=== PATIENT | female | born 1945 | race Caucasian/White ===

== ENCOUNTER → 2016-05-06 | Outpatient (CLI) | payer MEDICARE, OTHER ==
--- NOTE | 2016-05-06 11:21 | REPMRS ---
Patient History The patient states she had a clinical breast exam in 05/2016. Patient is postmenopausal. Family history of breast cancer in maternal aunt at age 50 or over, colorectal cancer in maternal aunt, and breast cancer in maternal cousin under age 50. Taking progesterone for 14 years. Digital Woman Screen Mammo: May 06, 2016 - Exam #: [id number] Bilateral CC and MLO view(s) were taken. Technologist: Shantell Pan, Technologist Prior study comparison: January 07, 2015, digital woman screen mammo performed at [facility]. November 22, 2013, digital woman screen mammo performed at [facility]. October 24, 2012, digital woman screen mammo performed at [facility]. FINDINGS: There are scattered fibroglandular densities. There has been no change in the appearance of the mammogram from the prior studies. There is a mild amount of scattered fibroglandular density which is fairly symmetric. There is no interval development of dominant mass, architectural distortion, or clustered microcalcification suggestive of malignancy. ASSESSMENT: BI-RADS/ACR category 1 mammogram. Negative. Recommendation Routine screening mammogram in 1 year (for women over age 40). This mammogram was interpreted with the aid of an FDA-approved computer-aided dectection system. Electronically Signed By: Jose Armendariz MD 05/06/16 [id number]
--- NOTE | 2016-05-07 12:57 | DEXA ---
AP SPINE L1 - L4 0.899 -2.4 -0.8 LT FEMUR TOTAL 0.664 -2.7 -1.2 RT FEMUR TOTAL 0.696 -2.5 -1.0 TOTAL BODY TOTAL OTHER DUAL FEMUR FRAX* ASSESSMENT Risk factors: History of adult fracture, premature menopause. 10 year probability of fracture Major osteoporotic fracture 31.5 % Hip fracture 11.7 % COMMENTS: There is low bone density of the spine. There is osteoporosis of the hips. The density of the spine has increased 8.9% since the initial exam on 2003. The spine density has increased 3.7% since the most recent exam on 11/22/2013. The density of the left hip has decreased 4.0% since the initial exam on 2003. The density of the left hip has decreased 0.6% since the most recent exam on . The density of the right hip has increased 0.3% since the initial exam on 2003. The density of the right hip has decreased 2.9% since the most recent exam on . FOLLOW-UP: Recommendation for the next bone density exam: 2 years. [employer]
== END ==
LOC: M WHC 09:40
PROVIDERS: ATTEND Nurse Practitioner Family
DX: Z01.419 Encounter for gynecological examination (general) (routine) without abnormal findings (principal); Z12.31 Encounter for screening mammogram for malignant neoplasm of breast; M81.0 Age-related osteoporosis without current pathological fracture; Z78.0 Asymptomatic menopausal state; Z79.890 Hormone replacement therapy; Z12.12 Encounter for screening for malignant neoplasm of rectum
CPT/HCPCS: 77080; 82270; G0101; G0202

== ENCOUNTER → 2016-11-11 | Outpatient (REF) | payer MEDICARE, OTHER ==
[2016-11-11 13:31] LABS: MEAN CORPUSCULAR HEMOGLOBIN 32.7 pg (27.0-33.0); MEAN CORPUSCULAR VOLUME 93.4 fl (80.0-96.0); RED CELL DISTRIBUTION WIDTH 11.7 % (11.5-14.5); WHITE BLOOD COUNT 4.5 K/mm3 (4.0-10.0)
[2016-11-11 13:43] LABS: ALBUMIN 3.9 GM/DL (3.2-5.2); ALBUMIN/GLOBULIN RATIO 1.44 (1.00-1.93); BILIRUBIN,TOTAL 0.8 MG/DL (0.2-1.0); CREATININE FOR GFR 1.01 MG/DL (0.55-1.02); FREE T4 0.96 NG/DL (0.76-1.46); GLOMERULAR FILTRATION RATE 57.4 (>39); POTASSIUM SERUM 4.2 MEQ/L (3.5-5.1); TOTAL PROTEIN 6.6 GM/DL (6.4-8.2)
== END ==
LOC: M SFHCADAM 09:23
PROVIDERS: ATTEND Family Medicine
DX: D75.89 Other specified diseases of blood and blood-forming organs (principal); E78.4 Other hyperlipidemia

== ENCOUNTER → 2016-12-08 | Outpatient (REF) | payer MEDICARE, OTHER ==
[2016-12-08 19:49] LABS: ALBUMIN 3.8 GM/DL (3.2-5.2); ALBUMIN/GLOBULIN RATIO 1.36 (1.00-1.93); BILIRUBIN,TOTAL 0.5 MG/DL (0.2-1.0); CREATININE FOR GFR 1.07 MG/DL (0.55-1.02); GLOMERULAR FILTRATION RATE 53.7 (>39); POTASSIUM SERUM 4.2 MEQ/L (3.5-5.1); TOTAL PROTEIN 6.6 GM/DL (6.4-8.2)
[2016-12-08 20:15] LABS: BASO # 0.1 10^3/uL (0.0-0.2); BASO % 0.7 % (0.0-1.0); EOS # 0.3 10^3/uL (0.0-0.50); EOS % 3.5 % (0.0-3.0); IMMATURE GRANULOCYTE % 0.3 % (0-0); LYMPH # 2.3 10^3/uL (1.5-4.5); LYMPH % 32.2 % (24.0-44.0); MEAN CORPUSCULAR HEMOGLOBIN 31.4 pg (27.0-33.0); MEAN CORPUSCULAR HGB CONC 33.2 g/dl (32.0-36.5); MEAN CORPUSCULAR VOLUME 94.6 fl (80.0-96.0); MONO # 0.6 10^3/uL (0.0-0.8); MONO % 8.9 % (0.0-5.0); NEUTROPHILS # 3.9 10^3/uL (1.8-7.7); NEUTROPHILS % 54.4 % (36.0-66.0); PLATELET COUNT, AUTOMATED 288 10^3/uL (150-450); WHITE BLOOD COUNT 7.2 10^3/uL (4.0-10.0)
[2016-12-08 20:59] LABS: ADD MORPHOLOGY? NO
== END ==
LOC: M SFHCADAM 16:20
PROVIDERS: ATTEND Physician Assistant
DX: R10.11 Right upper quadrant pain (principal)

== ENCOUNTER → 2016-12-09 | Outpatient (CLI) | payer MEDICARE, OTHER ==
--- NOTE | 2016-12-09 08:41 | REP ---
Abdominal right upper quadrant ultrasound: There is a positive Zhang's sign to transducer pressure. The visualized portion of the pancreatic head is unremarkable. The pancreatic body and tail are obscured by bowel gas. There is no cholelithiasis, gallbladder wall thickening or pericholecystic fluid. There is no intrahepatic or extrahepatic biliary duct dilatation. The common duct measures 3.4 mm in diameter. The hepatic parenchyma is homogeneous. There is no right renal hydronephrosis, calculus, mass or cyst. The right kidney is normal size measuring 90.5 cm craniocaudad length. There is no free fluid in the abdominal right upper quadrant. Impression: Positive Zhang's sign to transducer pressure. Otherwise, negative abdominal right upper quadrant ultrasound. Signed by Jose Luis Macedo MD 12/09/2016 08:32 A
== END ==
LOC: M RAD 06:18
PROVIDERS: ATTEND Physician Assistant
DX: R10.11 Right upper quadrant pain (principal)

== ENCOUNTER → 2017-01-18 | Outpatient (CLI) | payer MEDICARE, OTHER ==
--- NOTE | 2017-01-18 11:11 | REP ---
HIDA SCAN WITH GALLBLADDER EJECTION FRACTION: Following the intravenous administration of 6.6 mCi technetium 99m mebrofenin, multiple images of the right upper quadrant are performed for 1 hour. Gallbladder is visualized at 15 minutes postinjection. There is minimal [id number] transit at 1 hour. At that point, 8 ounces of Ensure Enlive was ingested and further imaging performed for 1 hour. Gallbladder ejection fraction is calculated to be 61%, which is normal. IMPRESSION: Normal gallbladder ejection fraction. Signed by Jose Luis Collazo MD 01/18/2017 12:44 P
== END ==
LOC: M RAD 07:45
PROVIDERS: ATTEND Surgery
DX: R10.11 Right upper quadrant pain (principal)
CPT/HCPCS: 78227; A9537; J2805

== ENCOUNTER → 2017-02-09 | Outpatient (CLI) | payer MEDICARE, OTHER | LOC: M LAB 14:29 | PROVIDERS: ATTEND Surgery | DX: R10.13 Epigastric pain (principal) ==

== ENCOUNTER → 2017-02-12 | Outpatient (CLI) | payer MEDICARE, OTHER ==
[~2017-02-12] MED LIST: ISOVUE-370 76% 100ML VIAL (Q9967) As Ordered ONE
--- NOTE | 2017-02-12 14:11 | REP ---
CT of the chest with IV contrast: Comparison is 03/19/2005. There are no infiltrates or effusions. There are no masses or nodules. There is no pleural thickening. No rib abnormalities are identified, particularly on the right. Vertebral body heights and alignment are normal. There is mild scoliosis convex right, possibly positional. There is no mediastinal or hilar adenopathy. There is no axillary adenopathy. The thoracic aorta is unremarkable. Cardiac size is normal. There is no pericardial effusion. The visualized upper abdominal contents are unremarkable. Impression: Essentially negative CT study of the chest. There is no change from the prior study. Signed by Jose Luis Macedo MD 02/12/2017 02:02 P
== END ==
LOC: M RAD 12:26
PROVIDERS: ATTEND Surgery
DX: R10.13 Epigastric pain (principal)
CPT/HCPCS: 71260; Q9967

== ENCOUNTER 2017-07-08 10:24 | Day surgery (SDC) | payer MEDICARE, OTHER ==
[2017-07-08] MEDS: NS 1,000 ML IV (10:42)
[2017-07-08] MEDS ORDERED: PROPOFOL 200 MG/20 ML VIAL As Ordered (11:27)
== END 2017-07-08 12:06 | disposition home or self-care (01) ==
LOC: M OPP 10:24
DX: Z12.11 Encounter for screening for malignant neoplasm of colon (principal); Z86.010 Personal history of colon polyps; I35.9 Nonrheumatic aortic valve disorder, unspecified; E78.5 Hyperlipidemia, unspecified; I36.1 Nonrheumatic tricuspid (valve) insufficiency; I34.2 Nonrheumatic mitral (valve) stenosis; K21.9 Gastro-esophageal reflux disease without esophagitis; R10.11 Right upper quadrant pain; M19.90 Unspecified osteoarthritis, unspecified site; M81.0 Age-related osteoporosis without current pathological fracture; Z87.891 Personal history of nicotine dependence; Z91.040 Latex allergy status; Z88.0 Allergy status to penicillin; Z88.2 Allergy status to sulfonamides; Z79.899 Other long term (current) drug therapy; Z80.7 Family history of other malignant neoplasms of lymphoid, hematopoietic and related tissues
CPT/HCPCS: G0105

== ENCOUNTER → 2017-10-04 | Outpatient (CLI) | payer MEDICARE, OTHER | LOC: M WHC 10:08 | DX: Z12.31 Encounter for screening mammogram for malignant neoplasm of breast (principal); Z79.890 Hormone replacement therapy; Z78.0 Asymptomatic menopausal state | CPT/HCPCS: 77067 ==

== ENCOUNTER → 2018-11-23 | Outpatient (REF) | payer MEDICARE, OTHER ==
[~2018-11-23] MED LIST changes: +CHOLACOL PO; +COQ1100C PO; +FISH100049 PO; -ISOVUE-370 76% 100ML VIAL (Q9967) As Ordered ONE; +OMEP40CA2; +REDCAP3 PO; +[UNRECOGNIZED DRUG - OTHER] PO
[2018-11-23 13:47] LABS: ALBUMIN 3.8 GM/DL (3.2-5.2); BILIRUBIN,TOTAL 0.8 MG/DL (0.2-1.0); CALCIUM LEVEL 9.2 MG/DL (8.8-10.2); CHOLESTEROL RISK RATIO 4.083 (<5); CREATININE FOR GFR 1.06 MG/DL (0.55-1.30); GLOMERULAR FILTRATION RATE 53.9 (>39); POTASSIUM SERUM 3.9 MEQ/L (3.5-5.1); TOTAL PROTEIN 6.3 GM/DL (6.4-8.2)
== END ==
LOC: M SFHCADAM 08:27
PROVIDERS: ATTEND Physician Assistant
DX: E78.49 Other hyperlipidemia (principal)

== ENCOUNTER → 2019-02-20 | Outpatient (CLI) | payer MEDICARE, OTHER ==
[~2019-02-20] MED LIST changes: -OMEP40CA2; +OMEP40CA97
--- NOTE | 2019-02-20 13:07 | REPMRS ---
Patient History The patient states she had a clinical breast exam in February 2019.Family history of breast cancer at age 50 or over in maternal aunt, breast cancer under age 50 in maternal cousin, colorectal cancer in maternal aunt. Taking progesterone for 14 years. Digital Woman Screen Mammo: February 20, 2019 - Exam #: [id number] Bilateral CC and MLO view(s) were taken. Technologist: Urvashi Saunders, Technologist Prior study comparison: October 04, 2017, bilateral digital woman screen mammo performed at [facility]. May 06, 2016, digital woman screen mammo performed at [facility]. January 07, 2015, digital woman screen mammo performed at [facility]. FINDINGS: There are scattered fibroglandular densities. There has been no change in the appearance of the mammogram from the prior studies. There is a mild amount of scattered fibroglandular density which is fairly symmetric. There is no interval development of dominant mass, architectural distortion, or grouped microcalcification suggestive of malignancy. 3-D tomosynthesis shows no additional findings. Assessment: BI-RADS/ACR category 1 mammogram. Negative Mammogram. Recommendation Routine screening mammogram of both breasts in 1 year (for women over age 40). This patient's Lifetime Breast Cancer Risk is estimated at 2.7 %. This mammogram was interpreted with the aid of an FDA-approved computer-aided dectection system. Electronically Signed By: Jose Armendariz MD 02/20/19 1970
--- NOTE | 2019-02-27 15:29 | DEXA ---
AP SPINE L1 - L4 0.905 -2.3 -0.6 LT FEMUR TOTAL 0.647 -2.9 -1.2 LT NECK 0.551 -3.5 -1.6 RT FEMUR TOTAL 0.691 -2.5 -0.8 RT NECK 0.602 -3.1 -1.3 TOTAL BODY TOTAL OTHER COMMENTS: There is low density of the spine. There is osteoporosis of the hips. The density of the spine has increased 2.8% since the initial exam on 01/17/2002. The spine density has increased 0.7% since the most recent exam on 05/06/2016. The density of the left hip has decreased 5.7% since the initial exam on 01/17/2002. The density of the left hip has decreased 2.6% since the most recent exam on 05/06/2016. The density of the right hip has decreased 2.7% since the initial exam on 01/17/2002. The density of the right hip has decreased 0.7% since the most recent exam on 05/06/2016. FOLLOW-UP: Recommendation for the next bone density exam: 2 years. [employer]
== END ==
LOC: M WHC 11:25
PROVIDERS: ATTEND Nurse Practitioner Family
DX: Z01.419 Encounter for gynecological examination (general) (routine) without abnormal findings (principal); Z12.31 Encounter for screening mammogram for malignant neoplasm of breast; M81.0 Age-related osteoporosis without current pathological fracture; Z92.29 Personal history of other drug therapy
CPT/HCPCS: 77063; 77067; 77080; G0101

== ENCOUNTER → 2021-01-06 | Outpatient (REF) | payer MEDICARE, OTHER ==
[~2021-01-06] MED LIST changes: +OMEP40CA4; -OMEP40CA97
[2021-01-06 13:12] LABS: HEMATOCRIT 42.6 % (36.0-47.0); HEMOGLOBIN 13.8 g/dl (12.0-15.5); MEAN CORPUSCULAR HEMOGLOBIN 31.2 pg (27.0-33.0); MEAN CORPUSCULAR HGB CONC 32.4 g/dl (32.0-36.5); MEAN CORPUSCULAR VOLUME 96.4 fl (80.0-96.0); PLATELET COUNT, AUTOMATED 266 10^3/uL (150-450); RED BLOOD COUNT 4.42 10^6/uL (4.00-5.40); WHITE BLOOD COUNT 6.2 10^3/uL (4.0-10.0)
[2021-01-06 13:53] LABS: ALBUMIN 3.5 GM/DL (3.2-5.2); BILIRUBIN,TOTAL 0.6 MG/DL (0.2-1.0); CALCIUM LEVEL 9.2 MG/DL (8.8-10.2); CHOLESTEROL RISK RATIO 3.903 (<5); CREATININE FOR GFR 1.11 MG/DL (0.55-1.30); FREE T4 0.9 NG/DL (0.76-1.46); GLOMERULAR FILTRATION RATE 50.9 (>39); POTASSIUM SERUM 4.5 MEQ/L (3.5-5.1); THYROID STIMULATING HORMONE 3.29 uIU/ML (0.358-3.740); TOTAL PROTEIN 6.3 GM/DL (6.4-8.2)
[2021-01-06 13:54] LABS: TOTAL 25(OH) VITAMIN D 41.8 NG/ML (30.0-100.0)
== END ==
LOC: M SFHCADAM 08:31
PROVIDERS: ATTEND Physician Assistant
DX: M81.0 Age-related osteoporosis without current pathological fracture (principal); D75.89 Other specified diseases of blood and blood-forming organs; E78.00 Pure hypercholesterolemia, unspecified

== ENCOUNTER → 2021-02-25 | Outpatient (CLI) | payer MEDICARE, OTHER | LOC: M WHC 09:43 | PROVIDERS: ATTEND Nurse Practitioner Women's Health | DX: Z01.419 Encounter for gynecological examination (general) (routine) without abnormal findings (principal); Z90.710 Acquired absence of both cervix and uterus; Z12.31 Encounter for screening mammogram for malignant neoplasm of breast; M81.0 Age-related osteoporosis without current pathological fracture; M89.8X0 Other specified disorders of bone, multiple sites; Z80.3 Family history of malignant neoplasm of breast | CPT/HCPCS: 77063; 77067; 77080; G0101 ==

== ENCOUNTER 2021-04-11 14:59 | Emergency (ER) | payer MEDICARE, OTHER ==
[~2021-04-11] VITALS: Ht 154.9 cm; Wt 71.0 kg
[2021-04-11] MEDS ORDERED: NORCO, ANEXSIA 5/325MG TABLET (HYDROcodone/ACETAMINOPHEN) PO ONE (16:05)
[2021-04-11] MEDS ORDERED: HYDR-3713 PO (16:52)
[2021-04-11 17:39] VITALS: BP 145/66
== END 2021-04-11 17:45 | disposition home or self-care (01) ==
LOC: M ED 14:59
DX: S42.251A Displaced fracture of greater tuberosity of right humerus, initial encounter for closed fracture (principal); Z88.0 Allergy status to penicillin; Z88.2 Allergy status to sulfonamides; W00.0XXA Fall on same level due to ice and snow, initial encounter; Y92.009 Unspecified place in unspecified non-institutional (private) residence as the place of occurrence of the external cause; Y93.9 Activity, unspecified; Y99.9 Unspecified external cause status

== ENCOUNTER → 2021-04-18 | Outpatient (CLI) | payer MEDICARE, OTHER ==
[~2021-04-18] MED LIST changes: +HYDR-3713 PO
== END ==
LOC: M SOG 13:25
PROVIDERS: ATTEND Orthopaedic Surgery Sports Medicine
DX: S42.231D 3-part fracture of surgical neck of right humerus, subsequent encounter for fracture with routine healing (principal)

== ENCOUNTER → 2021-05-26 | Outpatient (CLI) | payer MEDICARE, OTHER | LOC: M SOG 11:43 | PROVIDERS: ATTEND Orthopaedic Surgery Sports Medicine | DX: S42.231D 3-part fracture of surgical neck of right humerus, subsequent encounter for fracture with routine healing (principal); W18.30XD Fall on same level, unspecified, subsequent encounter ==

== ENCOUNTER → 2021-07-08 | Outpatient (CLI) | payer MEDICARE, OTHER | LOC: M SOG 08:44 | PROVIDERS: ATTEND Physician Assistant | DX: S42.231D 3-part fracture of surgical neck of right humerus, subsequent encounter for fracture with routine healing (principal) ==

== ENCOUNTER → 2021-08-26 | Outpatient (CLI) | payer MEDICARE, OTHER | LOC: M SOG 07:58 | PROVIDERS: ATTEND Orthopaedic Surgery Hand Surgery | DX: S42.231D 3-part fracture of surgical neck of right humerus, subsequent encounter for fracture with routine healing (principal) ==

== ENCOUNTER → 2022-02-03 | Outpatient (REF) | payer MEDICARE, OTHER ==
[2022-02-03 14:22] LABS: ALBUMIN 3.8 G/DL (3.2-5.2)
[2022-02-03 14:27] LABS: BILIRUBIN,TOTAL 0.7 MG/DL (0.3-1.2); CALCIUM LEVEL 9.5 MG/DL (8.3-10.6)
[2022-02-03 14:28] LABS: TOTAL PROTEIN 6.3 G/DL (5.7-8.2)
[2022-02-03 14:29] LABS: CHOLESTEROL RISK RATIO 4.51 (<5); CREATININE FOR GFR 1.14 MG/DL (0.55-1.30); GLOMERULAR FILTRATION RATE 49.2 (>39); HDL CHOLESTEROL 62.5 MG/DL (>40); LDL CHOLESTEROL 189.9 MG/DL (<100)
[2022-02-03 14:30] LABS: FREE T4 1.02 NG/DL (0.89-1.76); THYROID STIMULATING HORMONE 6.581 uIU/ML (0.55-4.78)
[2022-02-03 14:54] LABS: POTASSIUM SERUM 4.4 MMOL/L (3.5-5.1)
== END ==
LOC: M SFHCADAM 07:57
PROVIDERS: ATTEND Physician Assistant
DX: E78.00 Pure hypercholesterolemia, unspecified (principal)

== ENCOUNTER → 2022-02-23 | Outpatient (CLI) | payer MEDICARE, OTHER | LOC: M WHC 09:44 | PROVIDERS: ATTEND Physician Assistant | DX: Z12.31 Encounter for screening mammogram for malignant neoplasm of breast (principal) ==

== ENCOUNTER 2022-05-23 08:43 | Emergency (ER) | payer MEDICARE, OTHER ==
[~2022-05-23] VITALS: Ht 154.9 cm; Wt 69.0 kg
[2022-05-23] MEDS ORDERED: METH-1164 PO (12:04)
[2022-05-23 12:25] VITALS: BP 142/86
== END 2022-05-23 12:27 | disposition home or self-care (01) ==
LOC: M ED 11:26
DX: S46.812A Strain of other muscles, fascia and tendons at shoulder and upper arm level, left arm, initial encounter (principal); R00.0 Tachycardia, unspecified; I45.10 Unspecified right bundle-branch block; I25.2 Old myocardial infarction; F10.10 Alcohol abuse, uncomplicated; Z88.0 Allergy status to penicillin; Z82.2 Family history of deafness and hearing loss; Z91.040 Latex allergy status; Z79.899 Other long term (current) drug therapy

== ENCOUNTER → 2022-05-27 | Outpatient (REF) | payer MEDICARE, OTHER ==
[~2022-05-27] MED LIST changes: +METH-1164 PO
== END ==
LOC: M SFHCADAM 13:51
PROVIDERS: ATTEND Physician Assistant
DX: M54.2 Cervicalgia (principal); M79.602 Pain in left arm

== ENCOUNTER → 2022-05-28 | Outpatient (REF) | payer MEDICARE, OTHER ==
[2022-05-28 13:01] LABS: BASO % 0.7 % (0.0-1.0); EOS # 0.2 10^3/uL (0.0-0.5); EOS % 4.3 % (0.0-3.0); HEMATOCRIT 41.6 % (36.0-47.0); HEMOGLOBIN 13.7 g/dl (12.0-15.5); LYMPH # 1.6 10^3/uL (1.5-5.0); LYMPH % 28.3 % (24.0-44.0); MEAN CORPUSCULAR HEMOGLOBIN 31.9 pg (27.0-33.0); MEAN CORPUSCULAR HGB CONC 32.9 g/dl (32.0-36.5); MONO # 0.5 10^3/uL (0.0-0.8); NEUTROPHILS # 3.2 10^3/uL (1.5-8.5); NEUTROPHILS % 57.3 % (36.0-66.0); PLATELET COUNT, AUTOMATED 266 10^3/uL (150-450); RED BLOOD COUNT 4.29 10^6/uL (4.00-5.40); WHITE BLOOD COUNT 5.6 10^3/uL (4.0-10.0)
[2022-05-28 13:08] LABS: ALBUMIN 3.7 G/DL (3.2-5.2); ALKALINE PHOSPHATASE 84 U/L (46-116); ALT/SGPT 22 U/L (7.0-40); AST/SGOT 19 U/L (<34); BILIRUBIN,TOTAL 0.7 MG/DL (0.3-1.2); BLOOD UREA NITROGEN 21 MG/DL (9-23); CALCIUM LEVEL 9.3 MG/DL (8.3-10.6); CARBON DIOXIDE LEVEL 30 MMOL/L (20-31); CHLORIDE LEVEL 106 MMOL/L (98-107); CREATININE FOR GFR 1.08 MG/DL (0.55-1.30); GLOMERULAR FILTRATION RATE 52.4 (>39); GLUCOSE, FASTING 87 MG/DL (74-106); POTASSIUM SERUM 4.3 MMOL/L (3.5-5.1); SODIUM LEVEL 141 MMOL/L (136-145)
[2022-05-28 13:10] LABS: TOTAL 25(OH) VITAMIN D 47.2 NG/ML (20.0-100.0); VITAMIN B12 LEVEL 943 PG/ML (211-911)
[2022-05-28 13:22] LABS: FOLATE > 24.0 NG/ML (>5.4)
[2022-05-28 13:40] LABS: ERYTHROCYTE SEDIMENTATION RATE 15 mm/hr (0-30)
== END ==
LOC: M SFHCADAM 07:35
PROVIDERS: ATTEND Physician Assistant
DX: M50.21 Other cervical disc displacement, high cervical region (principal); M50.221 Other cervical disc displacement at C4-C5 level; M43.12 Spondylolisthesis, cervical region; M79.602 Pain in left arm

== ENCOUNTER → 2022-05-28 | Outpatient (CLI) | payer MEDICARE, OTHER | LOC: M ADAMS 08:01 | PROVIDERS: ATTEND Physician Assistant | DX: M50.21 Other cervical disc displacement, high cervical region (principal); M50.221 Other cervical disc displacement at C4-C5 level; M43.12 Spondylolisthesis, cervical region ==

== ENCOUNTER → 2022-08-10 | Outpatient (REF) | payer MEDICARE, OTHER ==
[2022-08-10 14:13] LABS: CHOLESTEROL RISK RATIO 3.82 (<5); HDL CHOLESTEROL 58.3 MG/DL (>40); LDL CHOLESTEROL 144.7 MG/DL (<100); NON-HDL-C 164.7 MG/DL
[2022-08-10 14:14] LABS: FREE T4 0.92 NG/DL (0.89-1.76); THYROID STIMULATING HORMONE 4.179 uIU/ML (0.55-4.78)
== END ==
LOC: M SFHCADAM 09:22
PROVIDERS: ATTEND Physician Assistant
DX: Z12.31 Encounter for screening mammogram for malignant neoplasm of breast (principal); M81.0 Age-related osteoporosis without current pathological fracture; E78.00 Pure hypercholesterolemia, unspecified; R79.89 Other specified abnormal findings of blood chemistry

== ENCOUNTER → 2023-04-14 | Outpatient (REF) | payer MEDICARE, OTHER | LOC: M SFHCWAGY 12:31 | PROVIDERS: ATTEND Nurse Practitioner Family | DX: Z12.72 Encounter for screening for malignant neoplasm of vagina (principal); N95.2 Postmenopausal atrophic vaginitis | CPT/HCPCS: 87624; G0123 ==

== ENCOUNTER → 2023-04-14 | Outpatient (CLI) | payer MEDICARE, OTHER | LOC: M WHC 13:57 | PROVIDERS: ATTEND Nurse Practitioner Family | DX: Z12.31 Encounter for screening mammogram for malignant neoplasm of breast (principal) ==

== ENCOUNTER → 2023-08-17 | Outpatient (REF) | payer MEDICARE, OTHER ==
[2023-08-17 13:45] LABS: HEMATOCRIT 43.3 % (36.0-47.0); HEMOGLOBIN 14.1 g/dl (12.0-15.5); MEAN CORPUSCULAR HEMOGLOBIN 31.6 pg (27.0-33.0); MEAN CORPUSCULAR HGB CONC 32.6 g/dl (32.0-36.5); MEAN CORPUSCULAR VOLUME 97.1 fl (80.0-96.0); PLATELET COUNT, AUTOMATED 278 10^3/uL (150-450); RED BLOOD COUNT 4.46 10^6/uL (4.00-5.40); WHITE BLOOD COUNT 5.3 10^3/uL (4.0-10.0)
[2023-08-17 14:24] LABS: THYROID STIMULATING HORMONE 3.985 uIU/ML (0.55-4.78); TOTAL 25(OH) VITAMIN D 40.3 NG/ML (20.0-100.0)
[2023-08-17 14:25] LABS: FREE T4 1.01 NG/DL (0.89-1.76)
[2023-08-17 14:28] LABS: ALBUMIN 3.6 G/DL (3.2-5.2); BILIRUBIN,TOTAL 0.6 MG/DL (0.3-1.2); CALCIUM LEVEL 9.4 MG/DL (8.3-10.6); CHOLESTEROL RISK RATIO 5.49 (<5); CREATININE FOR GFR 1.17 MG/DL (0.55-1.30); GLOMERULAR FILTRATION RATE 47.6 (>39); HDL CHOLESTEROL 50.2 MG/DL (>40); LDL CHOLESTEROL 183.8 MG/DL (<100); NON-HDL-C 225.8 MG/DL; POTASSIUM SERUM 4.8 MMOL/L (3.5-5.1); TOTAL PROTEIN 6.2 G/DL (5.7-8.2)
== END ==
LOC: M SFHCADAM 08:49
PROVIDERS: ATTEND Physician Assistant
DX: M81.0 Age-related osteoporosis without current pathological fracture (principal); E78.00 Pure hypercholesterolemia, unspecified

== ENCOUNTER → 2023-08-24 | Outpatient (CLI) | payer MEDICARE ==
[~2023-08-24] MED LIST changes: +PROHANCE 279.3MG/ML 15ML VIAL As Ordered ONE
== END ==
LOC: M RAD 12:12
PROVIDERS: ATTEND Physician Assistant
DX: Z00.00 Encounter for general adult medical examination without abnormal findings (principal); H53.9 Unspecified visual disturbance; R01.1 Cardiac murmur, unspecified; R09.89 Other specified symptoms and signs involving the circulatory and respiratory systems
CPT/HCPCS: 70553; 93880; A9576

== ENCOUNTER → 2023-08-27 | Outpatient (CLI) | payer MEDICARE ==
[~2023-08-27] MED LIST changes: -PROHANCE 279.3MG/ML 15ML VIAL As Ordered ONE
== END ==
LOC: M CARPUL 10:05
PROVIDERS: ATTEND Physician Assistant
DX: I35.0 Nonrheumatic aortic (valve) stenosis (principal); R01.1 Cardiac murmur, unspecified; R09.89 Other specified symptoms and signs involving the circulatory and respiratory systems; H53.9 Unspecified visual disturbance

== ENCOUNTER → 2023-09-29 | Outpatient (REF) | payer MEDICARE, OTHER ==
[2023-09-29 13:13] LABS: ALBUMIN 3.8 G/DL (3.2-5.2); BILIRUBIN,TOTAL 0.7 MG/DL (0.3-1.2); CALCIUM LEVEL 9.5 MG/DL (8.3-10.6); CHOLESTEROL RISK RATIO 3.44 (<5); CREATININE FOR GFR 1.15 MG/DL (0.55-1.30); GLOMERULAR FILTRATION RATE 48.5 (>39); HDL CHOLESTEROL 52.6 MG/DL (>40); LDL CHOLESTEROL 112.4 MG/DL (<100); NON-HDL-C 128.4 MG/DL; POTASSIUM SERUM 4.5 MMOL/L (3.5-5.1); TOTAL PROTEIN 6.3 G/DL (5.7-8.2)
== END ==
LOC: M SFHCADAM 09:58
PROVIDERS: ATTEND Physician Assistant
DX: E78.00 Pure hypercholesterolemia, unspecified (principal)

== ENCOUNTER → 2024-04-19 | Outpatient (REF) | payer MEDICARE, OTHER ==
[2024-04-19 14:04] LABS: HEMATOCRIT 42.6 % (36.0-47.0); HEMOGLOBIN 13.9 g/dl (12.0-15.5); MEAN CORPUSCULAR HEMOGLOBIN 31.3 pg (27.0-33.0); MEAN CORPUSCULAR HGB CONC 32.6 g/dl (32.0-36.5); MEAN CORPUSCULAR VOLUME 95.9 fl (80.0-96.0); PLATELET COUNT, AUTOMATED 264 10^3/uL (150-450); RED BLOOD COUNT 4.44 10^6/uL (4.00-5.40)
[2024-04-19 14:20] LABS: ALBUMIN 3.7 G/DL (3.2-5.2); BILIRUBIN,TOTAL 0.7 MG/DL (0.3-1.2); CALCIUM LEVEL 9.4 MG/DL (8.3-10.6); CHOLESTEROL RISK RATIO 3.35 (<5); CREATININE FOR GFR 1.13 MG/DL (0.55-1.30); GLOMERULAR FILTRATION RATE 49.4 (>39); HDL CHOLESTEROL 56.4 MG/DL (>40); LDL CHOLESTEROL 109.8 MG/DL (<100); NON-HDL-C 132.6 MG/DL; POTASSIUM SERUM 4.5 MMOL/L (3.5-5.1); TOTAL PROTEIN 6.5 G/DL (5.7-8.2)
[2024-04-19 14:28] LABS: HEMOGLOBIN A1c 5.5 % (4.0-6.0)
== END ==
LOC: M SFHCADAM 08:53
PROVIDERS: ATTEND Physician Assistant
DX: M81.0 Age-related osteoporosis without current pathological fracture (principal); E78.00 Pure hypercholesterolemia, unspecified; H53.9 Unspecified visual disturbance; Z79.899 Other long term (current) drug therapy

== ENCOUNTER → 2024-04-26 | Outpatient (CLI) | payer MEDICARE, OTHER | LOC: M WHC 15:16 | PROVIDERS: ATTEND Physician Assistant | DX: Z12.31 Encounter for screening mammogram for malignant neoplasm of breast (principal); Z13.820 Encounter for screening for osteoporosis; M81.0 Age-related osteoporosis without current pathological fracture; Z53.9 Procedure and treatment not carried out, unspecified reason ==

== ENCOUNTER → 2024-05-04 | Outpatient (CLI) | payer MEDICARE, OTHER | LOC: M WHC 13:08 | PROVIDERS: ATTEND Physician Assistant | DX: Z12.31 Encounter for screening mammogram for malignant neoplasm of breast (principal); M81.0 Age-related osteoporosis without current pathological fracture; M85.88 Other specified disorders of bone density and structure, other site ==

== ENCOUNTER → 2024-10-25 | Outpatient (REF) | payer MEDICARE, OTHER ==
[2024-10-25 13:48] LABS: ALT/SGPT 22.0 U/L (7.0-40); AST/SGOT 24.0 U/L (<34); CALCIUM LEVEL 9.5 MG/DL (8.3-10.6); CARBON DIOXIDE LEVEL 32.0 MMOL/L (20-31); CHLORIDE LEVEL 106.0 MMOL/L (98-107); CHOLESTEROL LEVEL 190.0 MG/DL (<200); CHOLESTEROL RISK RATIO 3.46 (<5); CREATININE FOR GFR 1.11 MG/DL (0.55-1.30); GLOMERULAR FILTRATION RATE 50.3 (>32); LDL CHOLESTEROL 106.5 MG/DL (<100); NON-HDL-C 135.1 MG/DL; POTASSIUM SERUM 4.5 MMOL/L (3.5-5.1); SODIUM LEVEL 145.0 MMOL/L (136-145); TRIGLYCERIDES LEVEL 143.0 MG/DL (<150)
[2024-10-25 14:39] LABS: ESTIMATED AVERAGE GLUCOSE 114.0 MG/DL (60-110)
== END ==
LOC: M SFHCADAM 09:06
PROVIDERS: ATTEND Physician Assistant
DX: E78.00 Pure hypercholesterolemia, unspecified (principal); R73.01 Impaired fasting glucose